=== PATIENT | female | born 1940 | race Caucasian/White ===

== ENCOUNTER 2025-07-26 09:19 | Outpatient (CLI) | payer MEDICARE, SELFPAY ==
--- NOTE | 2025-07-26 10:53 | P.ANES_ITS ---
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
--- NOTE | 2025-07-26 10:53 | W.ANESCHARGE ---
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
--- NOTE | 2025-07-26 10:54 | P.ANES_ITS ---
Anesthesia Charges Start Date/Time Anesthesia Start Date: 07/26/25 Anesthesia Start Time: 10:21 Stop Date/Time Anesthesia Stop Date: 07/26/25 Anesthesia Stop Time: 10:50 Summary Extremes of Age - Over 70 or under 1: MDA Coding CPT Codes CPT Codes: ANES LWR INTST NDSC NOS - 04907 ([id number]) P2 - PATIENT W/MILD SYST DISEASE, QK - SOCIAL WORKER ASSISTANT 2-4 CNCRNT ANES PROC, QX - AGRONOMY SUPERVISOR SVC W/ MD MED DIRECTION Additional Codes: Summary - Extremes of Age - Over 70 or under 1: MDA ([id number])
--- NOTE | 2025-07-26 10:54 | W.ANESCHARGE ---
Anesthesia Charges Start Date/Time Anesthesia Start Date: 07/26/25 Anesthesia Start Time: 10:21 Stop Date/Time Anesthesia Stop Date: 07/26/25 Anesthesia Stop Time: 10:50 Summary Extremes of Age - Over 70 or under 1: MDA Coding CPT Codes CPT Codes: ANES LWR INTST NDSC NOS - 33451 ([id number]) P2 - PATIENT W/MILD SYST DISEASE, QK - SOFTWARE SUPPORT ENGINEER 2-4 CNCRNT ANES PROC, QX - PLAYER DEVELOPMENT MANAGER SVC W/ MD MED DIRECTION Additional Codes: Summary - Extremes of Age - Over 70 or under 1: MDA ([id number])
== END 2025-07-26 09:20 | disposition home or self-care (01) ==
LOC: OP CLINIC 09:25
PROVIDERS: PCP Family Medicine; Visit Provider Internal Medicine Gastroenterology
DX: Z12.11 Encounter for screening for malignant neoplasm of colon (principal); Z86.0100 Personal history of colon polyps, unspecified; D12.0 Benign neoplasm of cecum
CPT/HCPCS: 00811; 45380; 88305; 99100; J2704